=== PATIENT | female | born 1955 | race Caucasian/White ===

== ENCOUNTER → 2018-11-06 19:04 | Outpatient (CLI) | payer BC, SELFPAY ==
[2018-10-29 18:12] VITALS: BMI 29.2
[2018-11-07 01:35] LABS: AST(SGOT) 21 U/L (15-37); Alanine Aminotransfer ALT/SGPT 17 U/L (13-56); Albumin, Serum 3.9 g/dL (3.2-5.0); Alkaline Phosphatase 62 U/L (45-117); Anion Gap 3 (5-15); BUN 10 mg/dL (7-18); BUN/Creat Ratio 12.3 RATIO (10-20); Calcium,Total 8.8 mg/dL (8.5-10.1); Chloride 102 mmol/L (98-107); Cholesterol 191 mg/dL (200); Creatinine, Serum 0.81 mg/dL (0.55-1.02); EST Glomerular Filtration Rate 76 mL/min (>60); Est Glom Filt Rate - Afr Amer 92 mL/min (>60); Glucose 92 mg/dL (74-106); High Density Lipoprotein 64 mg/dL; Potassium 3.8 mmol/L (3.5-5.1); Protein, Total 7.9 g/dL (6.4-8.2); Sodium Level 136 mmol/L (136-145); Thyroid Stim Hormone (TSH) 2.06 uIU/mL (0.358-3.74); Triglycerides 193 mg/dL; Very Low Density Lipoprotein 39 mg/dL (5-40)
== END ==
PROVIDERS: Family Provider Family Medicine; PCP Family Medicine; Referring Provider Nurse Practitioner; Visit Provider Nurse Practitioner
DX: E78.5 Hyperlipidemia, unspecified (principal); E03.9 Hypothyroidism, unspecified
CPT/HCPCS: 80053; 80061; 84443

== ENCOUNTER → 2019-11-14 22:14 | Outpatient (CLI) | payer BC, SELFPAY ==
[2019-11-14 17:55] VITALS: BMI 29.0
[2019-11-14 22:24] LABS: Absolute Lymphocyte Count 2.45 X10^3/uL (0.83-4.51); Absolute Neutrophil Count 7.2 X10^3/uL (2.0-7.7); Basophil# 0.04 X10^3/uL; Basophil% 0.4 % (0-1); Eosinophil# 0.13 X10^3/uL; Eosinophils% 1.2 % (0-5); Hematocrit 45.9 % (37-47); Hemoglobin 14.8 g/dL (12.0-15.0); Lymphocyte # 2.45 X10^3/ul (4.0); Mean Corp Hgb Conc 32.2 g/dL (32-36); Mean Corpuscular Volume 89.8 fL (81-99); Mean Platelet Vol. 11.7 fl (6.2-12.0); Monocyte# 0.79 X10^3/uL; Monocyte% 7.4 % (0-10); NRBC Flagged by Analyzer 0 % (0-5); Neutrophil % 67.8 % (47-70); Platelet Count 178 K/mm3 (150-450); RBC Distribution Width CV 12.5 % (11.6-14.6); RBC Distribution Width SD 41.3 fl (35.1-43.9); Red Blood Count 5.11 M/mm3 (4.2-5.4); White Blood Count 10.6 K/mm3 (4.4-11.0)
[2019-11-14 22:45] LABS: AST(SGOT) 23 U/L (15-37); Alanine Aminotransfer ALT/SGPT 20 U/L (13-56); Albumin, Serum 4.2 g/dL (3.2-5.0); Alkaline Phosphatase 69 U/L (45-117); Anion Gap 7 (5-15); BUN 6 mg/dL (7-18); BUN/Creat Ratio 7.3 RATIO (10-20); Calcium,Total 9.4 mg/dL (8.5-10.1); Chloride 106 mmol/L (98-107); Cholesterol 221 mg/dL (200); Creatinine, Serum 0.82 mg/dL (0.55-1.02); EST Glomerular Filtration Rate 74 mL/min (>60); Est Glom Filt Rate - Afr Amer 90 mL/min (>60); Globulin 4.3 g/dL (2.2-4.2); Glucose 112 mg/dL (74-106); High Density Lipoprotein 66 mg/dL; Potassium 3.7 mmol/L (3.5-5.1); Protein, Total 8.5 g/dL (6.4-8.2); Sodium Level 140 mmol/L (136-145); Thyroid Stim Hormone (TSH) 1.63 uIU/mL (0.358-3.74); Triglycerides 127 mg/dL; Very Low Density Lipoprotein 25 mg/dL (5-40)
== END ==
LOC: OLS.AHF 22:15 → LABSPEC 11-15 08:44
PROVIDERS: PCP Family Medicine; Referring Provider Nurse Practitioner; Visit Provider Nurse Practitioner
DX: Z00.00 Encounter for general adult medical examination without abnormal findings (principal); I10 Essential (primary) hypertension; E03.9 Hypothyroidism, unspecified
CPT/HCPCS: 80053; 80061; 84443; 85025

== ENCOUNTER → 2020-10-30 21:54 | Outpatient (CLI) | payer BC, SELFPAY ==
[2020-10-30 22:27] LABS: Absolute Lymphocyte Count 2.71 X10^3/uL (0.83-4.51); Absolute Neutrophil Count 4.1 X10^3/uL (2.0-7.7); Basophil# 0.04 X10^3/uL; Basophil% 0.5 % (0-1); Eosinophil# 0.31 X10^3/uL; Eosinophils% 3.8 % (0-5); Hematocrit 39.8 % (37-47); Hemoglobin 12.7 g/dL (12.0-15.0); Lymphocyte # 2.71 X10^3/ul (0.83-4.51); Lymphocyte % 33.4 % (19-41); Mean Corp Hgb Conc 31.9 g/dL (32-36); Mean Corpuscular Hgb 27.5 pg (27.0-32.0); Mean Corpuscular Volume 86.3 fL (81-99); Mean Platelet Vol. 11.7 fl (6.2-12.0); Monocyte# 0.95 X10^3/uL; Monocyte% 11.7 % (0-10); NRBC Flagged by Analyzer 0 % (0-5); Neutrophil # 4.08 X10^3/uL (2.7-7.7); Neutrophil % 50.4 % (47-70); Platelet Count 226 K/mm3 (150-450); RBC Distribution Width CV 13.2 % (11.6-14.6); RBC Distribution Width SD 41.3 fl (35.1-43.9); Red Blood Count 4.61 M/mm3 (4.2-5.4); White Blood Count 8.1 K/mm3 (4.4-11.0)
[2020-10-30 22:45] LABS: AST(SGOT) 26 U/L (15-37); Alanine Aminotransfer ALT/SGPT 21 U/L (13-56); Albumin, Serum 4.1 g/dL (3.2-5.0); Alkaline Phosphatase 66 U/L (45-117); Anion Gap 9 (5-15); BUN 12 mg/dL (7-18); BUN/Creat Ratio 14.4 RATIO (10-20); Chloride 98 mmol/L (98-107); Cholesterol 199 mg/dL (200); Creatinine, Serum 0.84 mg/dL (0.55-1.02); EST Glomerular Filtration Rate 73 mL/min (>60); Est Glom Filt Rate - Afr Amer 88 mL/min (>60); Globulin 4.2 g/dL (2.2-4.2); Glucose 90 mg/dL (74-106); High Density Lipoprotein 66 mg/dL; Potassium 2.6 mmol/L (3.5-5.1); Protein, Total 8.3 g/dL (6.4-8.2); Sodium Level 135 mmol/L (136-145); Thyroid Stim Hormone (TSH) 1.93 uIU/mL (0.358-3.74); Triglycerides 107 mg/dL; Very Low Density Lipoprotein 21 mg/dL (5-40)
== END ==
PROVIDERS: PCP Family Medicine; Referring Provider Nurse Practitioner; Visit Provider Nurse Practitioner
DX: Z00.00 Encounter for general adult medical examination without abnormal findings (principal)
CPT/HCPCS: 80053; 80061; 84443; 85025

== ENCOUNTER → 2020-11-19 21:45 | Outpatient (CLI) | payer BC, SELFPAY ==
[2020-11-19 22:26] LABS: Anion Gap 5 (5-15); BUN 19 mg/dL (7-18); BUN/Creat Ratio 25.3 RATIO (10-20); Chloride 99 mmol/L (98-107); Creatinine, Serum 0.75 mg/dL (0.55-1.02); EST Glomerular Filtration Rate 82 mL/min (>60); Est Glom Filt Rate - Afr Amer 100 mL/min (>60); Glucose 111 mg/dL (74-106); Potassium 2.8 mmol/L (3.5-5.1); Sodium Level 135 mmol/L (136-145)
== END ==
PROVIDERS: PCP Family Medicine; Visit Provider Nurse Practitioner
DX: E87.6 Hypokalemia (principal)
CPT/HCPCS: 80048

== ENCOUNTER → 2020-12-07 22:15 | Outpatient (CLI) | payer BC, SELFPAY ==
[2020-12-07 22:47] LABS: ALB/GLOB Ratio 0.8 RATIO (0.9-2.4); AST(SGOT) 21 U/L (15-37); Alanine Aminotransfer ALT/SGPT 22 U/L (13-56); Albumin, Serum 3.8 g/dL (3.2-5.0); Alkaline Phosphatase 68 U/L (45-117); Anion Gap 10 (5-15); BUN 13 mg/dL (7-18); BUN/Creat Ratio 15.2 RATIO (10-20); Calcium,Total 9.2 mg/dL (8.5-10.1); Chloride 102 mmol/L (98-107); Creatinine, Serum 0.86 mg/dL (0.55-1.02); EST Glomerular Filtration Rate 71 mL/min (>60); Est Glom Filt Rate - Afr Amer 86 mL/min (>60); Globulin 4.5 g/dL (2.2-4.2); Glucose 159 mg/dL (74-106); Potassium 3.3 mmol/L (3.5-5.1); Protein, Total 8.3 g/dL (6.4-8.2); Sodium Level 140 mmol/L (136-145)
== END ==
PROVIDERS: PCP Family Medicine; Referring Provider Nurse Practitioner; Visit Provider Nurse Practitioner
DX: E87.6 Hypokalemia (principal)
CPT/HCPCS: 80053

== ENCOUNTER → 2021-02-05 21:08 | Outpatient (CLI) | payer BC, SELFPAY ==
[2021-02-05 21:50] LABS: ALB/GLOB Ratio 0.9 RATIO (0.9-2.4); AST(SGOT) 19 U/L (15-37); Alanine Aminotransfer ALT/SGPT 19 U/L (13-56); Albumin, Serum 3.9 g/dL (3.2-5.0); Alkaline Phosphatase 65 U/L (45-117); Anion Gap 7 (5-15); BUN 18 mg/dL (7-18); BUN/Creat Ratio 22.2 RATIO (10-20); Calcium,Total 9.5 mg/dL (8.5-10.1); Chloride 104 mmol/L (98-107); Creatinine, Serum 0.81 mg/dL (0.55-1.02); EST Glomerular Filtration Rate 75 mL/min (>60); Est Glom Filt Rate - Afr Amer 91 mL/min (>60); Globulin 4.5 g/dL (2.2-4.2); Glucose 107 mg/dL (74-106); Potassium 3.4 mmol/L (3.5-5.1); Protein, Total 8.4 g/dL (6.4-8.2); Sodium Level 139 mmol/L (136-145)
== END ==
PROVIDERS: PCP Family Medicine; Referring Provider Nurse Practitioner; Visit Provider Nurse Practitioner
DX: E87.6 Hypokalemia (principal)
CPT/HCPCS: 80053

== ENCOUNTER → 2021-11-13 | Outpatient (CLI) | payer BC, SELFPAY ==
[2021-11-13 01:43] LABS: Absolute Lymphocyte Count 2.86 X10^3/uL (0.83-4.51); Absolute Neutrophil Count 5.3 X10^3/uL (2.0-7.7); Basophil# 0.05 X10^3/uL; Basophil% 0.5 % (0-1); Eosinophil# 0.18 X10^3/uL; Eosinophils% 1.9 % (0-5); Hematocrit 40.8 % (37-47); Hemoglobin 13.3 g/dL (12.0-15.0); Lymphocyte # 2.86 X10^3/ul (0.83-4.51); Lymphocyte % 30.7 % (19-41); Mean Corp Hgb Conc 32.6 g/dL (32-36); Mean Corpuscular Hgb 28.4 pg (27.0-32.0); Mean Platelet Vol. 11.2 fl (6.2-12.0); Monocyte# 0.86 X10^3/uL; Monocyte% 9.2 % (0-10); NRBC Flagged by Analyzer 0 % (0-5); Neutrophil # 5.34 X10^3/uL (2.7-7.7); Neutrophil % 57.5 % (47-70); POSITIVE COUNT YES; RBC Distribution Width CV 13.2 % (11.6-14.6); RBC Distribution Width SD 42.1 fl (35.1-43.9); Red Blood Count 4.69 M/mm3 (4.2-5.4); White Blood Count 9.3 K/mm3 (4.4-11.0)
[2021-11-13 01:51] LABS: Differential Indicated SCAN CRITERIA MET
[2021-11-13 02:05] LABS: AST(SGOT) 22 U/L (15-37); Alanine Aminotransfer ALT/SGPT 21 U/L (13-56); Albumin, Serum 4.1 g/dL (3.2-5.0); Alkaline Phosphatase 65 U/L (45-117); Anion Gap 8 (5-15); BUN 11 mg/dL (7-18); BUN/Creat Ratio 13.2 RATIO (10-20); Calcium,Total 9.5 mg/dL (8.5-10.1); Chloride 99 mmol/L (98-107); Cholesterol 222 mg/dL (200); Creatinine, Serum 0.84 mg/dL (0.55-1.02); EST Glomerular Filtration Rate 73 mL/min (>60); Est Glom Filt Rate - Afr Amer 88 mL/min (>60); Globulin 4.2 g/dL (2.2-4.2); Glucose 108 mg/dL (74-106); High Density Lipoprotein 65 mg/dL; Potassium 3.3 mmol/L (3.5-5.1); Protein, Total 8.3 g/dL (6.4-8.2); Sodium Level 138 mmol/L (136-145); Thyroid Stim Hormone (TSH) 0.88 uIU/mL (0.358-3.74); Triglycerides 114 mg/dL; Very Low Density Lipoprotein 23 mg/dL (5-40)
[2021-11-13 02:06] LABS: Differential Comment SCANNED
[2021-11-13 02:07] LABS: Platelet Estimate ADEQUATE (ADEQ)
== END | disposition home or self-care (01) ==
PROVIDERS: PCP Family Medicine; Visit Provider Nurse Practitioner
DX: Z00.00 Encounter for general adult medical examination without abnormal findings (principal)
CPT/HCPCS: 80053; 80061; 84443; 85025

== ENCOUNTER → 2022-11-24 | Outpatient (CLI) | payer MEDICARE, SELFPAY ==
[2022-11-24 20:52] LABS: Absolute Neutrophil Count 5.1 X10^3/uL (2.0-7.7); Basophil# 0.04 X10^3/uL; Basophil% 0.4 % (0-1); Eosinophil# 0.27 X10^3/uL; Hemoglobin 12.5 g/dL (12.0-15.0); Mean Corp Hgb Conc 32.1 g/dL (32-36); Mean Corpuscular Volume 87.4 fL (81-99); Mean Platelet Vol. 11.7 fl (6.2-12.0); Monocyte# 0.77 X10^3/uL; Monocyte% 8.5 % (0-10); NRBC Flagged by Analyzer 0 % (0-5); Neutrophil # 5.12 X10^3/uL (2.7-7.7); Neutrophil % 56.8 % (47-70); Platelet Count 182 K/mm3 (150-450); RBC Distribution Width CV 13.5 % (11.6-14.6); Red Blood Count 4.46 M/mm3 (4.2-5.4)
[2022-11-24 21:13] LABS: ALB/GLOB Ratio 0.9 RATIO (0.9-2.4); AST(SGOT) 23 U/L (15-37); Alanine Aminotransfer ALT/SGPT 26 U/L (13-56); Alkaline Phosphatase 70 U/L (45-117); Anion Gap 9 (5-15); BUN 15 mg/dL (7-18); BUN/Creat Ratio 17.7 RATIO (10-20); Calcium,Total 8.9 mg/dL (8.5-10.1); Chloride 96 mmol/L (98-107); Cholesterol 196 mg/dL (200); Creatinine, Serum 0.85 mg/dL (0.55-1.02); EST Glomerular Filtration Rate 71 mL/min (>60); Est Glom Filt Rate - Afr Amer 86 mL/min (>60); Globulin 4.3 g/dL (2.2-4.2); Glucose 139 mg/dL (74-106); High Density Lipoprotein 56 mg/dL; Potassium 2.8 mmol/L (3.5-5.1); Protein, Total 8.3 g/dL (6.4-8.2); Sodium Level 133 mmol/L (136-145); Thyroid Stim Hormone (TSH) 2.08 uIU/mL (0.358-3.74); Triglycerides 119 mg/dL; Very Low Density Lipoprotein 24 mg/dL (5-40)
== END | disposition home or self-care (01) ==
PROVIDERS: PCP Family Medicine; Visit Provider Nurse Practitioner
DX: I10 Essential (primary) hypertension (principal); E87.6 Hypokalemia; M19.90 Unspecified osteoarthritis, unspecified site; E03.9 Hypothyroidism, unspecified; E78.2 Mixed hyperlipidemia
CPT/HCPCS: 80053; 80061; 84443; 85025

== ENCOUNTER → 2023-11-24 | Outpatient (CLI) | payer MEDICARE, OTHER, SELFPAY ==
[2023-11-24 20:38] LABS: Absolute Lymphocyte Count 3.02 X10^3/uL (0.83-4.51); Absolute Neutrophil Count 4.4 X10^3/uL (2.0-7.7); Basophil# 0.05 X10^3/uL; Basophil% 0.6 % (0-1); Eosinophil# 0.31 X10^3/uL; Eosinophils% 3.6 % (0-5); Hematocrit 38.7 % (37-47); Hemoglobin 12.9 g/dL (12.0-15.0); Lymphocyte # 3.02 X10^3/ul (0.83-4.51); Lymphocyte % 35.5 % (19-41); Mean Corp Hgb Conc 33.3 g/dL (32-36); Mean Corpuscular Hgb 28.4 pg (27.0-32.0); Mean Corpuscular Volume 85.1 fL (81-99); Mean Platelet Vol. 12.3 fl (6.2-12.0); Monocyte# 0.72 X10^3/uL; Monocyte% 8.5 % (0-10); NRBC Flagged by Analyzer 0 % (0-5); Neutrophil # 4.39 X10^3/uL (2.7-7.7); Neutrophil % 51.6 % (47-70); Platelet Count 155 K/mm3 (150-450); RBC Distribution Width CV 12.6 % (11.6-14.6); RBC Distribution Width SD 38.4 fl (35.1-43.9); Red Blood Count 4.55 M/mm3 (4.2-5.4); White Blood Count 8.5 K/mm3 (4.4-11.0)
[2023-11-24 21:18] LABS: AST(SGOT) 18 U/L (15-37); Alanine Aminotransfer ALT/SGPT 18 U/L (13-56); Albumin, Serum 3.9 g/dL (3.2-5.0); Alkaline Phosphatase 65 U/L (45-117); Anion Gap 9 (5-15); BUN 8 mg/dL (7-18); BUN/Creat Ratio 9.8 RATIO (10-20); Calcium,Total 8.9 mg/dL (8.5-10.1); Chloride 91 mmol/L (98-107); Cholesterol 190 mg/dL (200); Creatinine, Serum 0.82 mg/dL (0.55-1.02); EST Glomerular Filtration Rate 74 mL/min (>60); Est Glom Filt Rate - Afr Amer 90 mL/min (>60); Globulin 3.9 g/dL (2.2-4.2); Glucose 229 mg/dL (74-106); High Density Lipoprotein 57 mg/dL; Potassium 2.9 mmol/L (3.5-5.1); Protein, Total 7.8 g/dL (6.4-8.2); Sodium Level 130 mmol/L (136-145); Triglycerides 196 mg/dL; Very Low Density Lipoprotein 39 mg/dL (5-40)
== END | disposition home or self-care (01) ==
PROVIDERS: Nurse Practitioner; PCP Family Medicine; Referring Provider Family Medicine; Visit Provider Family Medicine
DX: E87.6 Hypokalemia (principal); I10 Essential (primary) hypertension; M15.3 Secondary multiple arthritis; E03.9 Hypothyroidism, unspecified; E78.2 Mixed hyperlipidemia
CPT/HCPCS: 80053; 80061; 84443; 85025

== ENCOUNTER → 2024-11-22 | Outpatient (CLI) | payer MEDICARE, OTHER, SELFPAY ==
--- OUTSIDE RECORDS SUMMARY | 2024-11-22 22:46 | XMS RPT_ITS | CCD ---
Author Organization [facility] Care Team Providers Care Ticket Writer Name Role Phone Abhinav Lennon Primary Care Provider ABHINAV LENNON Referring Unavailable ABHINAV LENNON Attending Unavailable Almas Martin Referring Unavailable Almas Martin Attending Unavailable Almas Martin Primary Care Unavailable Abhinav Lennon Primary Care Provider Medications Current Medications Medication Drug Class(es) Dates Sig (Normalized) Sig (Original) levothyroxine sodium 0.088 mg oral capsule (14 sources) l-Thyroxine Start: 10-29-2018 End: 11-25-2022 take 1 capsule by mouth once daily levothyroxine 88 mcg capsule Active 88 MCG PO DAILY November 25, 2022 1:23pm Start: 09-27-2017 take 1 tablet by buddy th once daily levothyroxine (SYNTHROID) 88 MCG tablet Take 88 mcg by mouth daily 0 09/27/2017 Active traMADol hydrochloride 50 mg oral tablet (20 sources) Opioid Agonist Start: 03-09-2018 End: 11-24-2022 take 100 mg by mouth twice daily Tramadol Active 100 MG PO TWICE A DAY 360 November 24, 2022 5:51pm Start: 09-27-2017 take 1 tablet by buddy th four times daily as needed traMADol (ULTRAM) 50 MG tablet Take 50 mg by mouth 4 times daily as needed. 0 09/27/2017 Active 24 hr verapamil hydrochloride 240 mg extended release oral capsule (17 sources) Calcium Channel Otf Start: 11-14-2019 End: 11-24-2022 take 240 mg by mouth once daily Verapamil Active 240 MG PO DAILY November 24, 2022 5:51pm Start: 09-27-2017 End: 10-04-2019 take 240 mg by mouth once daily in the morning Verapamil Discontinued 240 MG PO EVERY MORNING November 06, 2018 12:09pm October 04, 2019 3:11pm On Hold: back oredered Completed/Discontinued Medications Medication Drug Class(es) Dates Sig (Normalized) Sig (Original) amLODIPine 10 mg oral tablet (2 sources) Dihydropyridine Calcium Channel Otf Start: 01-15-20 End: 11-14-19 take 10 mg by mouth once daily Amlodipine Discontinued 10 MG PO DAILY January 14, 2019 1:00am November 14, 2019 6:06pm amoxicillin 875 mg / clavulanate 125 mg oral tablet (2 sources) Penicillin-class Antibacterial Start: 01-02-20 End: 04-01-19 take 1 tablet by mouth twice daily Amoxicillin-Pot Clavulanate Discontinued 1 TABLET PO TWICE A DAY January 01, 2019 12:00am April 01, 2019 6:24pm cefuroxime 500 mg oral tablet (2 sources) Cephalosporin Antibacterial Start: 01-13-20 End: 04-01-19 take 500 mg by mouth twice daily Cefuroxime Axetil Discontinued 500 MG PO TWICE A DAY January 12, 2019 1:00am April 01, 2019 6:24pm ciprofloxacin 500 mg oral tablet (2 sources) Quinolone Antimicrobial Start: 03-09-19 End: 10-30-19 take 500 mg by mouth twice daily Ciprofloxacin Hcl Discontinued 500 MG PO TWICE A DAY March 09, 2018 1:00am October 29, 2018 6:14pm cyclobenzaprine hydrochloride 10 mg oral tablet (15 sources) Muscle Relaxant Start: 09-28-19 18 End: 11-25-19 take 10 mg by mouth three times daily Cyclobenzaprine Discontinued 10 MG PO THREE TIMES A DAY November 06, 2018 12:07pm November 14, 2019 6:11pm dicyclomine hydrochloride 20 mg oral tablet (13 sources) Anticholinergic Start: 10-30-19 End: 11-25-19 take 20 mg by mouth three times daily Dicyclomine Discontinued 20 MG PO THREE TIMES A DAY November 06, 2018 12:08pm November 14, 2019 6:11pm estradiol 0.5 mg oral tablet (8 sources) Estrogen Start: 10-30-19 End: 04-15-19 take 0.5 mg by mouth once daily Estradiol Discontinued 0.5 MG PO DAILY November 06, 2018 12:08pm November 14, 2019 6:11pm gabapentin 300 mg oral capsule (15 sources) Anti-epileptic Agent Start: 09-28-19 End: 11-25-19 take 300 mg by mouth three times daily Gabapentin Discontinued 300 MG PO THREE TIMES A DAY 270 November 06, 2018 12:08pm November 14, 2019 6:11pm hydroCHLOROthiazide 25 mg oral tablet (15 sources) Thiazide Diuretic Start: 09-28-19 End: 11-25-19 take 25 mg by mouth once daily Hydrochlorothiazide Discontinued 25 MG PO DAILY 90 November 06, 2018 12:08pm November 14, 2019 6:11pm ibuprofen 800 mg oral tablet (13 sources) Nonsteroidal Anti-inflammatory Drug Start: 04-01-19 End: 11-25-19 take 800 mg by mouth three times daily Ibuprofen Discontinued 800 MG PO THREE TIMES A DAY 180 February 16, 2021 9:40pm November 12, 2021 3:14pm omeprazole 20 mg delayed release oral capsule (13 sources) Proton Pump Inhibitor Start: 10-30-19 End: 11-25-19 take 20 mg by mouth once daily Omeprazole Discontinued 20 MG PO DAILY November 06, 2018 12:09pm November 14, 2019 6:11pm potassium chloride 20 meq extended release oral tablet (20 sources) Start: 12-09-19 End: 11-25-19 take 20 mEq by mouth twice daily Potassium Chloride Discontinued 20 MEQ PO TWICE A DAY 180 February 12, 2021 3:57pm November 12, 2021 3:14pm Start: 10-30-2020 End: 12-08-2020 take 30 mEq by mouth once daily Potassium Chloride Discontinued 30 MEQ PO DAILY 180 October 30, 2020 3:07pm December 08, 2020 2:54pm Start: 10-29-2018 End: 10-30-2020 take 30 mEq by mouth once daily Potassium Chloride Discontinued 30 MEQ PO DAILY 180 May 16, 2019 7:57pm April 15, 2020 6:40pm Start: 10-29-2018 End: 10-29-2018 Potassium Chloride (Klor-Con M15) 15 mEq tablet,ER particles/crystals Discontinued 15 MEQ PO DAILY October 29, 2018 12:00am October 29, 2018 9:10pm Start: 09-27-2017 potassium chlo ride (KLOR-CON M) 15 MEQ extended release tablet Take 15 mEq by mouth 3 times daily 0 09/27/2017 Active sertraline 50 mg oral tablet (13 sources) Serotonin Reuptake Inhibitor Start: 10-29-2018 End: 11-24-2022 take 50 mg by mouth once daily Sertraline Discontinued 50 MG PO DAILY November 06, 2018 12:09pm November 14, 2019 6:11pm simvastatin 40 mg oral tablet (15 sources) HMG-CoA Reductase Inhibitor Start: 09-27-2017 End: 11-24-2022 take 40 mg by mouth at bedtime Simvastatin Discontinued 40 MG PO AT BEDTIME November 06, 2018 12:09pm November 14, 2019 6:11pm Problems Problem Classification Problem Date Documented Date Episodic/Chronic Disorders of lipid metabolism (2 sources) Hyperlipidemia; Translations: [Hyperlipidemia, unspecified] 11-07-2018 Chronic E Codes: Fall (1 source) Fall on same level from slipping, tripping or stumbling ; Translations: [Fall on same level from slipping, tripping and stumbling without subsequent striking against object, initial encounter] Episodic Essential hypertension (2 sources) Hypertensive disorder; Translations: [Essential (primary) hypertension] 11-24-2022 Chronic Fluid and electrolyte disorders (3 sources) Hypokalemia; Translations: [Hypokalemia] Onset: 12-18-2023 04-16-2020 Episodic Osteoarthritis (2 sources) Osteoarthritis; Translations: [Unspecified osteoarthritis, unspecified site] 04-01-2019 Chronic Other injuries and conditions due to external causes (1 source) Closed injury of head; Translations: [Unspecified injury of head, initial encounter] Episodic Other non-traumatic joint disorders (1 source) Pain in right knee; Translations: [Other acute pain] Episodic Other non-traumatic joint disorders (1 source) Shoulder pain; Translations: [Pain in left shoulder] Episodic Other screening for suspected conditions (not mental disorders or infectious disease) (6 sources) Patient encounter status; Translations: [Encounter for screening mammogram for malignant neoplasm of breast] Onset: 03-18-2022 Episodic Other upper respiratory infections (2 sources) Maxillary sinusitis; Translations: [Chronic maxillary sinusitis] 01-01-2019 Chronic Other upper respiratory infections (2 sources) Pharyngitis; Translations: [Acute pharyngitis, unspecified] 01-01-2019 Episodic Otitis media and related conditions (2 sources) Acute bilateral otitis media ; Translations: [Otitis media, unspecified, bilateral] 01-01-2019 Episodic Spondylosis; intervertebral disc disorders; other back problems (2 sources) Degeneration of lumbosacral intervertebral disc; Translations: [Other intervertebral disc degeneration, lumbosacral region] 04-01-2019 Chronic Spondylosis; intervertebral disc disorders; other back problems (3 sources) Neck pain; Translations: [Cervicalgia] Episodic Thyroid disorders (2 sources) Hypothyroidism; Translations: [Hypothyroidism, unspecified] 11-07-2018 Chronic Results Test Name Value Interpretation Reference Range Facility CBC W/Diff, Automatedon 11-05 Absolute Lymph 3.02 X10 3/uL Normal 0.83-4.51 [facility] Comment on above: Performed By: #### L 500.4100, L100.0100, L501.9520, [id number] #### [facility] Laboratory [address] [facility] [address] Absolute Neut 4.4 X10 3/uL Normal 2.0-7.7 [facility] Comment on above: Performed By: #### L 500.4100, L100.0100, [id number], [id number] #### [facility] Laboratory [address] [facility] [address] Basophils/100 WBC (Bld) 0.6 % Normal 0-1 [facility] Comment on above: Performed By: #### L 500.4100, L100.0100, [id number], [id number] #### [facility] Laboratory [address] [place], [address] Eosinophils/100 WBC (Bld) 3.6 % Normal 0-5 [facility] Comment on above: Performed By: #### L 500.4100, L100.0100, [id number], [id number] #### [facility] [address] [place], [address] Erythrocyte distribution width (RBC) [Ratio] 12.6 % Normal 11.6-14.6 [facility] Comment on above: Performed By: #### L 500.4100, L100.0100, [id number], [id number] #### [facility] [address] [place], [address] Hematocrit (Bld) [Volume fraction] 38.7 % Normal 37-47 [facility] Comment on above: Performed By: #### L 500.4100, L100.0100, [id number], [id number] #### [facility] [address] [place], [address] Hemoglobin (Bld) [Mass/Vol] 12.9 g/dL Normal 12.0-15.0 [facility] Comment on above: Performed By: #### L 500.4100, L100.0100, [id number], [id number] #### [facility] [address] [place], [address] IG% 0.200 Normal 0.0-0.9 [facility] Comment on above: Result Comment: IG% - Immature Granulocytes (promyelocytes, myelocytes and metamyelocytes) > 1% indicates that a LEFT SHIFT is Present. Performed By: #### L 500.4100, L100.0100, L501.9520, [id number] #### [facility] [address] [place], [address] Lymphocytes/100 WBC (Bld) 35.5 % Normal 19-41 [facility] Comment on above: Performed By: #### L 500.4100, L100.0100, [id number], [id number] #### [facility] [address] [place], [address] MCH (RBC) [Entitic mass] 28.4 pg Normal 27.0-32.0 [facility] Comment on above: Performed By: #### L 500.4100, L100.0100, [id number], [id number] #### [facility] [address] [place], [address] MCHC (RBC) [Mass/Vol] 33.3 g/dL Normal 32-36 [facility] Comment on above: Performed By: #### L 500.4100, L100.0100, [id number], [id number] #### [facility] [address] [place], [address] MCV (RBC) [Entitic vol] 85.1 fL Normal 81-99 [facility] Comment on above: Performed By: #### L 500.4100, L100.0100, [id number], [id number] #### [facility] [address] [place], [address] Monocytes/100 WBC (Bld) 8.5 % Normal 0-10 [facility] Comment on above: Performed By: #### L 500.4100, L100.0100, [id number], [id number] #### [facility] [address] [place], [address] Neutrophils/100 WBC (Bld) 51.6 % Normal 47-70 [facility] Comment on above: Performed By: #### L 500.4100, L100.0100, [id number], [id number] #### [facility] [address] [place], [address] Nucleated RBC (Bld) [#/Vol] 0 10*3/uL Normal 0-5 [facility] Comment on above: Performed By: #### L 500.4100, L100.0100, [id number], [id number] #### [facility] [address] [place], [address] Platelet mean volume (Bld) [Entitic vol] 12.3 fL High 6.2-12.0 [facility] Comment on above: Performed By: #### L 500.4100, L100.0100, [id number], [id number] #### [facility] Laboratory [address] [place], [address] Platelets (Bld) [#/Vol] 155 10*3/uL Normal 150-450 [facility] Comment on above: Performed By: #### L 500.4100, L100.0100, [id number], [id number] #### [facility] [address] [place], [address] RBC (Bld) [#/Vol] 4.55 10*6/uL Normal 4.2-5.4 [facility] Comment on above: Performed By: #### L 500.4100, L100.0100, [id number], [id number] #### [facility] [address] [place], [address] RDW SD 38.4 fl Normal 35.1-43.9 [facility] Comment on above: Performed By: #### L 500.4100, L100.0100, [id number], [id number] #### [facility] [address] [place], [address] WBC (Bld) [#/Vol] 8.5 10*3/uL Normal 4.4-11.0 [facility] Comment on above: Performed By: #### L 500.4100, L100.0100, [id number], [id number] #### [facility] Laboratory [address] [place], [address] Comprehensive Metabolic Prof [facility] 11-24-2023 Albumin [Mass/Vol] 3.9 g/dL Normal 3.2-5.0 [facility] Comment on above: Performed By: #### L 500.4100, L100.0100, [id number], [id number] #### [facility] [address] [place], [address] Albumin/Globulin [Mass ratio] 1.0 {ratio} Normal 0.9-2.4 [facility] Comment on above: Performed By: #### L 500.4100, L100.0100, [id number], [id number] #### [facility] [address] [place], [address] ALK P 65 U/L Normal 45-117 [facility] Comment on above: Performed By: #### L 500.4100, L100.0100, [id number], [id number] #### [facility] [address] [place], [address] ALT [Catalytic activity/Vol] 18 U/L Normal 13-56 [facility] Comment on above: Performed By: #### L 500.4100, L100.0100, [id number], [id number] #### [facility] [address] [place], [address] AST [Catalytic activity/Vol] 18 U/L Normal 15-37 [facility] Comment on above: Performed By: #### L 500.4100, L100.0100, [id number], [id number] #### [facility] [address] [place], [address] Bilirubin [Mass/Vol] 0.40 mg/dL Normal 0.20-1.00 [facility] Comment on above: Result Comment: For patients on eltrombopag therapy, use of Dimension [place] TBIL is not recommended. Performed By: #### L 500.4100, L100.0100, [id number], [id number] #### [facility] [address] [place], [address] BUN/CRE 9.8 RATIO Low 10-20 [facility] Comment on above: Performed By: #### L 500.4100, L100.0100, [id number], [id number] #### [facility] [address] [place], [address] CA,Total 8.9 mg/dL Normal 8.5-10.1 [facility] Comment on above: Performed By: #### L 500.4100, L100.0100, [id number], [id number] #### [facility] [address] [place], [address] Chloride [Moles/Vol] 91 mmol/L Low 98-107 [facility] Comment on above: Performed By: #### L 500.4100, L100.0100, [id number], [id number] #### [facility] [address] [place], [address] CO2 [Moles/Vol] 30.0 mmol/L Normal 21.0-32.0 [facility] Comment on above: Performed By: #### L 500.4100, L100.0100, [id number], [id number] #### [facility] [address] [place], [address] Creatinine [Mass/Vol] 0.82 mg/dL Normal 0.55-1.02 [facility] Comment on above: Result Comment: The validity of the calculated GFR GFRAA in patients over 70 years has not been determined. Clinical correlation is essential. Performed By: #### L 500.4100, L100.0100, L501.9520, L500.4050 #### [facility] [address] [place], [address] EST GFR - AA 90 mL/min Normal >60 [facility] Comment on above: Result Comment: Afri can Faroese GFR Calc Performed By: #### L 500.4100, L100.0100, [id number], [id number] #### [facility] [address] [place], [address] GAP 9 Normal 5-15 [facility] Comment on above: Performed By: #### L 500.4100, L100.0100, [id number], [id number] #### [facility] [address] [place], [address] GFR/1.73 sq M.predicted among non-blacks MDRD (S/P/Bld) [Vol rate/Area] 74 mL/min/{1.73_m2} Normal >60 [facility] Comment on above: Result Comment: Non- GFR Calc Performed By: #### L 500.4100, L100.0100, [id number], [id number] #### [facility] [address] [place], [address] Globulin (S) [Mass/Vol] 3.9 g/dL Normal 2.2-4.2 [facility] Comment on above: Performed By: #### L 500.4100, L100.0100, [id number], [id number] #### [facility] [address] [place], [address] Glucose [Mass/Vol] 229 mg/dL High 74-106 [facility] Comment on above: Result Comment: Gluc ose result greater than or equal to 200 mg/dL suggests DIABETES MELLITUS per A.D.A. criteria. Performed By: #### L 500.4100, L100.0100, [id number], [id number] #### [facility] [address] [place], [address] Potassium [Moles/Vol] 2.9 mmol/L Low 3.5-5.1 [facility] Comment on above: Performed By: #### L 500.4100, L100.0100, [id number], [id number] #### [facility] [address] [place], [address] Sodium [Moles/Vol] 130 mmol/L Low 136-145 [facility] Comment on above: Performed By: #### L 500.4100, L100.0100, [id number], [id number] #### [facility] [address] [place], [address] T PROT 7.8 g/dL Normal 6.4-8.2 [facility] Comment on above: Performed By: #### L 500.4100, L100.0100, [id number], [id number] #### [facility] [address] [place], [address] Urea nitrogen [Mass/Vol] 8 mg/dL Normal 7-18 [facility] Comment on above: Performed By: #### L 500.4100, L100.0100, [id number], [id number] #### [facility] [address] [place], [address] Lipid Profileon 11-24-2023 Cholesterol [Mass/Vol] 190 mg/dL Normal 200 [facility] Comment on above: Result Comment: <200 mg/dL Desirable 200-240 mg/dL Borderline >240 mg/dL High Risk Performed By: #### L 500.4100, L100.0100, [id number], L500.4050 #### [facility] [address] [place], [address] Cholesterol in HDL [Mass/Vol] 57 mg/dL Normal [facility] Comment on above: Result Comment: The drugs N-Acetylcysteine and Metamizole may falsely depress this assay. Reference Range HDL <40 mg/dL Low HDL Cholesterol HDL >or= 60 mg/dL High HDL Cholesterol Performed By: #### L 500.4100, L100.0100, [id number], L500.4050 #### [facility] [address] [place], [address] Cholesterol in LDL [Mass/Vol] 94 mg/dL Normal 0-130 [facility] Comment on above: Performed By: #### L 500.4100, L100.0100, [id number], [id number] #### [facility] Laboratory [address] [place], [address] Cholesterol in VLDL [Mass/Vol] 39 mg/dL Normal 5-40 [facility] Comment on above: Performed By: #### L 500.4100, L100.0100, [id number], [id number] #### [facility] Laboratory [address] [place], [address] Triglyceride [Mass/Vol] 196 mg/dL Normal [facility] Comment on above: Result Comment: The drugs N-Acetylcysteine and Metamizole may falsely depress this assay. Serum Triglycerides Reference Interval Normal <150 mg/dL Borderline high 150 - 199 mg/dL High 200 - 499 mg/dL Very High > or = 500 mg/dL Performed By: #### L 500.4100, L100.0100, L501.9520, L500.4050 #### [facility] [address] [place], [address] Thyroid Stim Hormone (TSH)on 11-24-2023 TSH 1.370 uIU/mL Normal 0.358-3.740 [facility] Comment on above: Performed By: #### L 500.4100, L100.0100, L501.9520, [id number] #### [facility] [address] [place], [address] Absolute lymphocyte countOrd ered By: Abhinav Lennon on 11-24-2022 Lymphocytes Auto (Unsp spec) [#/Vol] 2.80 10*3/uL 0.83-4.51 [facility] Basophil percentageOrdered B y: Abhinav Lennon on 11-24-2022 Basophils/100 WBC (Bld) 0.4 % 0-1 [facility] Bilirubin [Mass/Vol] 0.50 mg/dL 0.20-1.00 [facility] Comment on above: For patients on eltr ombopag therapy, use of Dimension [place] TBIL is not recommended. Chloride [Moles/Vol] 96 mmol/L 98-107 [facility] Cholesterol [Mass/Vol] 196 mg/dL <200 [facility] Comment on above: <200 mg/dL Desirable 200-240 mg/dL Borderline >240 mg/dL High Risk Eosinophils/100 WBC (Bld) 3.0 % 0-5 [facility] Glucose [Mass/Vol] 139 mg/dL 74-106 [facility] Comment on above: Fasting Glucose resu lt greater than or equal to 126 mg/dL suggests DIABETES MELLITUS per A.D.A. criteria. Neutrophils (Bld) [#/Vol] 5.1 10*3/uL 2.0-7.7 [facility] Neutrophils/100 WBC (Bld) 56.8 % 47-70 [facility] Potassium [Moles/Vol] 2.8 mmol/L 3.5-5.1 [facility] Protein [Mass/Vol] 8.3 g/dL 6.4-8.2 [facility] Sodium [Moles/Vol] 133 mmol/L 136-145 [facility] Triglyceride [Mass/Vol] 119 mg/dL <199 [facility] Comment on above: The drugs N-Acetylcy steine and Metamizole may falsely depress this assay.Serum Triglycerides Reference Interval Normal <150 mg/dL Borderline high 150 - 199 mg/dL High 200 - 499 mg/dL Very High > or = 500 mg/dL WBC (Bld) [#/Vol] 9.0 10*3/uL 4.4-11.0 [facility] Blood erythrocytes count (nu mber/volume)Ordered By: Abhinav Lennon on 11-24-2022 RBC (Bld) [#/Vol] 4.46 10*6/uL 4.2-5.4 [facility] Blood hemoglobin measurement (mass/volume)Ordered By: Abhinav Lennon on 11-24-2022 Hemoglobin (Bld) [Mass/Vol] 12.5 g/dL 12.0-15.0 [facility] [place] Blood lymphocytes/100 leukoc ytesOrdered By: Abhinav Lennon on 11-24-2022 Lymphocytes/100 WBC (Bld) 31.0 % 19-41 [facility] [place] Blood monocytes/100 leukocyt esOrdered By: Abhinav Lennon on 11-24-2022 Monocytes/100 WBC (Bld) 8.5 % 0-10 [facility] Blood platelet mean volumeOr dered By: Abhinav Lennon on 11-24-2022 Platelet mean volume (Bld) [Entitic vol] 11.7 fL 6.2-12.0 [facility] Determination of erythrocyte mean corpuscular volume (MCV)Ordered By: Abhinav Lennon on 11-24-2022 MCV (RBC) [Entitic vol] 87.4 fL 81-99 [facility] Hematocrit Auto (Bld) [Volum e fraction]Ordered By: Abhinav Lennon on 11-24-2022 Hematocrit (Bld) [Volume fraction] 39.0 % 37-47 [facility] [place] Laboratory - Chemistry and C hemistry - challengeOrdered By: Abhinav Lennon on 11-24-2022 ALP [Catalytic activity/Vol] 70 U/L 45-117 [facility] ALT [Catalytic activity/Vol] 26 U/L 13-56 [facility] CO2 [Moles/Vol] 28.0 mmol/L 21.0-32.0 [facility] Globulin (S) [Mass/Vol] 4.3 g/dL 2.2-4.2 [facility] Urea nitrogen/Creatinine [Mass ratio] 17.7 mg/mg 10-20 [facility] [place] Laboratory - Hematology and Cell countsOrdered By: Abhinav Lennon on 11-24-2022 Erythrocyte distribution width (RBC) [Entitic vol] 43.0 fL 35.1-43.9 [facility] [place] Erythrocyte distribution width (RBC) [Ratio] 13.5 % 11.6-14.6 [facility] [place] Immature granulocytes/100 WBC (Bld) 0.300 % 0.0-0.9 [facility] Comment on above: IG% - Immature Granu locytes (promyelocytes, myelocytes and metamyelocytes) > 1% indicates that a LEFT SHIFT is Present. MCH (RBC) [Entitic mass] 28.0 pg 27.0-32.0 [facility] Nucleated RBC/100 WBC (Bld) [Ratio] 0 % 0-5 [facility] MCHC Auto (RBC) [Mass/Vol]Or dered By: Abhinav Lennon on 11-24-2022 MCHC (RBC) [Mass/Vol] 32.1 g/dL 32-36 [facility] No Panel InformationOrdered By: Abhinav Lennon on 11-24-2022 Estimated GFR (MDRD) Amer 86 mL/min >60 [facility] [place] Comment on above: GFR Calc Estimated GFR (MDRD) Non-Af Amer 71 mL/min >60 [facility] [place] Comment on above: Non- GFR Calc Thyroid Stimulating Hormone (TSH) 2.08 uIU/mL 0.358-3.74 [facility] [place] Platelets bldOrdered By: Gary Lennon on 11-24-2022 Platelets (Bld) [#/Vol] 182 10*3/uL 150-450 [facility] [place] Serum or plasma albumin stephane urement (mass/volume)Ordered By: Abhinav Lennon on 11-24-2022 Albumin [Mass/Vol] 4.0 g/dL 3.2-5.0 [facility] Serum or plasma albumin/glob ulin mass ratioOrdered By: Abhinav Lennon on 11-24-2022 Albumin/Globulin [Mass ratio] 0.9 {ratio} 0.9-2.4 [facility] [place] Serum or plasma calcium stephane urement (mass/volume)Ordered By: Abhinav Lennon on 11-24-2022 Calcium [Mass/Vol] 8.9 mg/dL 8.5-10.1 [facility] Serum or plasma cholesterol in HDL measurement (mass/volume)Ordered By: Abhinav Lennon on 11-24-2022 Cholesterol in HDL [Mass/Vol] 56 mg/dL >40 [facility] [place] Comment on above: The drugs N-Acetylcy steine and Metamizole may falsely depress this assay. Reference Range HDL <40 mg/dL Low HDL Cholesterol HDL >or= 60 mg/dL High HDL Cholesterol Serum or plasma cholesterol in VLDL measurement (mass/volume)Ordered By: Abhinav Lennon on 11-24-2022 Cholesterol in VLDL [Mass/Vol] 24 mg/dL 5-40 [facility] [place] Serum or plasma creatinine m easurement (mass/volume)Ordered By: Abhinav Lennon on 11-24-2022 Creatinine [Mass/Vol] 0.85 mg/dL 0.55-1.02 [facility] Comment on above: The validity of the calculated GFR & GFRAA in patients over 70 years has not been determined. Clinical correlation is essential. Serum or plasma low density lipoprotein (LDL) cholesterol measurement (mass/volume)Ordered By: Abhinav Lennon on 11-24-2022 Cholesterol in LDL [Mass/Vol] 116 mg/dL 0-130 [facility] [place] Serum or plasma urea nitroge n measurement (mass/volume)Ordered By: Abhinav Lennon on 11-24-2022 Urea nitrogen [Mass/Vol] 15 mg/dL 7-18 [facility] [place] Thin prep Papanicolaou smear with manual screeningOrdered By: Abhinav Lennon on 11-24-2022 Thin prep Papanicolaou smear with manual screening 23 U/L 15-37 [facility] [place] Thin prep Papanicolaou smear with manual screening 9 5-15 [facility] [place] DBT Breast - bilateral servandoe nerissa 03-18-2022 No mammographic evidence of malignancy. ASSESSMENT: Category 1 Negative RECOMMENDATION: Routine screening mammogram in 1 year. Bilateral Report Dictated on Electronically Signed By: Sue Cramer Electronically Signed Date/Time: 03/18/2022 8:20 AM [id number] Exam Date/Time: 03/18/2022 07:54 Procedure: BI MAMMOGRAM SCREENING TOMOSYNTHESIS BILATERAL Ordering Provider: LENNON DORA Reason For Exam: Image views: 2D Bilateral CC and MLO views were acquired. 3D Bilateral CC and MLO views were acquired. Images were reviewed with CAD. Markings on images: BB's = Nipples; skin lesions Open kaw = Palpable Line = Scar COMPARISON: 02/05/2016, 04/26/2019 TISSUE DENSITY: BIRADS B - There are scattered fibroglandular densities. FINDINGS: No suspicious masses, architectural distortions or suspiciously clustered microcalcifications are identified. There is no evidence of skin thickening or nipple retraction. There are no significant changes when compared with prior studies. [facility] Sue Cramer MD - 03/18/2022 Patient Name: RENE MEADOWS Exam Date/Time: 03/18/2022 07:54 Procedure: BI MAMMOGRAM SCREENING TOMOSYNTHESIS BILATERAL Ordering Provider: LENNON DORA Reason For Exam: Image views: 2D Bilateral CC and MLO views were acquired. 3D Bilateral CC and MLO views were acquired. Images were reviewed with CAD. Markings on images: BB's = Nipples; skin lesions Open kaw = Palpable Line = Scar COMPARISON: 02/05/2016, 04/26/2019 TISSUE DENSITY: BIRADS B - There are scattered fibroglandular densities. FINDINGS: No suspicious masses, architectural distortions or suspiciously clustered microcalcifications are identified. There is no evidence of skin thickening or nipple retraction. There are no significant changes when compared with prior studies. IMPRESSION: No mammographic evidence of malignancy. ASSESSMENT: Category 1 Negative RECOMMENDATION: Routine screening mammogram in 1 year. Bilateral Report Dictated on Electronically Signed By: Sue Cramer Electronically Signed Date/Time: 03/18/2022 8:20 AM EST [facility] Radiology Study observation (narrative) [facility] DBT Breast - bilateral scree ningOrdered By: Sue Cramer on 03-18-2022 [facility] Work Phone: Absolute lymphocyte counton 11-12-2021 Lymphocytes Auto (Unsp spec) [#/Vol] 2.86 10*3/uL 0.83-4.51 [facility] Work Phone: Basophil percentageon 2021 Basophils/100 WBC (Bld) 0.5 % 0-1 [facility] Work Phone: Bilirubin [Mass/Vol] 0.50 mg/dL 0.20-1.00 [facility] Work Phone: Comment on above: For patients on eltr ombopag therapy, use of Dimension [place] TBIL is not recommended. Chloride [Moles/Vol] 99 mmol/L 98-107 [facility] Work Phone: Cholesterol [Mass/Vol] 222 mg/dL <200 [facility] Work Phone: Comment on above: <200 mg/dL Desirable 200-240 mg/dL Borderline >240 mg/dL High Risk Eosinophils/100 WBC (Bld) 1.9 % 0-5 [facility] Work Phone: Glucose [Mass/Vol] 108 mg/dL 74-106 [facility] Work Phone: Comment on above: Fasting Glucose resu lt from 100 to 125 mg/dL suggests IMPAIRED HOMEOSTASIS per A.D.A. criteria. Neutrophils (Bld) [#/Vol] 5.3 10*3/uL 2.0-7.7 [facility] [place] Work Phone: Neutrophils/100 WBC (Bld) 57.5 % 47-70 [facility] [place] Work Phone: Potassium [Moles/Vol] 3.3 mmol/L 3.5-5.1 [facility] Work Phone: Protein [Mass/Vol] 8.3 g/dL 6.4-8.2 [facility] Work Phone: Sodium [Moles/Vol] 138 mmol/L 136-145 [facility] Work Phone: Triglyceride [Mass/Vol] 114 mg/dL <199 [facility] Work Phone: Comment on above: The drugs N-Acetylcy steine and Metamizole may falsely depress this assay.Serum Triglycerides Reference Interval Normal <150 mg/dL Borderline high 150 - 199 mg/dL High 200 - 499 mg/dL Very High > or = 500 mg/dL WBC (Bld) [#/Vol] 9.3 10*3/uL 4.4-11.0 [facility] Work Phone: Blood erythrocytes count (nu mber/volume)on 11-12-2021 RBC (Bld) [#/Vol] 4.69 10*6/uL 4.2-5.4 [facility] Work Phone: Blood hemoglobin measurement (mass/volume)on 11-12-2021 Hemoglobin (Bld) [Mass/Vol] 13.3 g/dL 12.0-15.0 [facility] Work Phone: Blood lymphocytes/100 leukoc yteson 11-12-2021 Lymphocytes/100 WBC (Bld) 30.7 % 19-41 [facility] Work Phone: Blood manual differential co mment interpretation (narrative result)on 11-12-2021 Manual differential comment Daniele (Bld) [Interp] SCANNED [facility] Work Phone: Blood monocytes/100 leukocyt eson 11-12-2021 Monocytes/100 WBC (Bld) 9.2 % 0-10 [facility] Work Phone: Blood platelet adequacy dete ction by light microscopyon 11-12-2021 Platelets LM Ql (Bld) ADEQUATE ADEQ [facility] Work Phone: Blood platelet mean volumeon 11-12-2021 Platelet mean volume (Bld) [Entitic vol] 11.2 fL 6.2-12.0 [facility] Work Phone: Determination of erythrocyte mean corpuscular volume (MCV)on 11-12-2021 MCV (RBC) [Entitic vol] 87.0 fL 81-99 [facility] Work Phone: Hematocrit Auto (Bld) [Volum e fraction]on 11-12-2021 Hematocrit (Bld) [Volume fraction] 40.8 % 37-47 [facility] [place] Work Phone: Laboratory - Chemistry and C hemistry - challengeon 11-12-2021 ALP [Catalytic activity/Vol] 65 U/L 45-117 [facility] [place] Work Phone: ALT [Catalytic activity/Vol] 21 U/L 13-56 [facility] Work Phone: CO2 [Moles/Vol] 31.0 mmol/L 21.0-32.0 [facility] Work Phone: Globulin (S) [Mass/Vol] 4.2 g/dL 2.2-4.2 [facility] Work Phone: Urea nitrogen/Creatinine [Mass ratio] 13.2 mg/mg 10-20 [facility] Work Phone: Laboratory - Hematology and Cell countson 11-12-2021 Erythrocyte distribution width (RBC) [Entitic vol] 42.1 fL 35.1-43.9 [facility] Work Phone: Erythrocyte distribution width (RBC) [Ratio] 13.2 % 11.6-14.6 [facility] Work Phone: Immature granulocytes/100 WBC (Bld) 0.200 % 0.0-0.9 [facility] Work Phone: Comment on above: IG% - Immature Granu locytes (promyelocytes, myelocytes and metamyelocytes) > 1% indicates that a LEFT SHIFT is Present. MCH (RBC) [Entitic mass] 28.4 pg 27.0-32.0 [facility] Work Phone: Nucleated RBC/100 WBC (Bld) [Ratio] 0 % 0-5 [facility] Work Phone: MCHC Auto (RBC) [Mass/Vol]on 11-12-2021 MCHC (RBC) [Mass/Vol] 32.6 g/dL 32-36 [facility] Work Phone: No Panel Informationon 11-12 Estimated GFR (MDRD) Amer 88 mL/min >60 [facility] Work Phone: Comment on above: GFR Calc Estimated GFR (MDRD) Non-Af Amer 73 mL/min >60 [facility] Work Phone: Comment on above: Non- GFR Calc Thyroid Stimulating Hormone (TSH) 0.88 uIU/mL 0.358-3.74 [facility] Work Phone: Platelets bldon 11-12-2021 Platelets (Bld) [#/Vol] [employer] [facility] Work Phone: Comment on above: Please note: For thi s sample, a platelet estimate is provided rather than a platelet count due to platelet clumping. Other parameters associated with this sample are not affected by platelet clumping. If a more accurate platelet count is required, a redraw of the patient will be necessary.Previous reported result: 144 [id number] by: NEGRITA on 11/13/21:0206 AMENDED REPORT 11/13/21 020 PLT previously reported as: 144 L K/mm3 Serum or plasma albumin stephane urement (mass/volume)on 11-12-2021 Albumin [Mass/Vol] 4.1 g/dL 3.2-5.0 [facility] Work Phone: Serum or plasma albumin/glob ulin mass ratioon 11-12-2021 Albumin/Globulin [Mass ratio] 1.0 {ratio} 0.9-2.4 [facility] Work Phone: Serum or plasma calcium stephane urement (mass/volume)on 11-12-2021 Calcium [Mass/Vol] 9.5 mg/dL 8.5-10.1 [facility] Work Phone: Serum or plasma cholesterol in HDL measurement (mass/volume)on 11-12-2021 Cholesterol in HDL [Mass/Vol] 65 mg/dL >40 [facility] Work Phone: Comment on above: The drugs N-Acetylcy steine and Metamizole may falsely depress this assay. Reference Range HDL <40 mg/dL Low HDL Cholesterol HDL >or= 60 mg/dL High HDL Cholesterol Serum or plasma cholesterol in VLDL measurement (mass/volume)on 11-12-2021 Cholesterol in VLDL [Mass/Vol] 23 mg/dL 5-40 [facility] Work Phone: Serum or plasma creatinine m easurement (mass/volume)on 11-12-2021 Creatinine [Mass/Vol] 0.84 mg/dL 0.55-1.02 [facility] Work Phone: Comment on above: The validity of the calculated GFR & GFRAA in patients over 70 years has not been determined. Clinical correlation is essential. Serum or plasma low density lipoprotein (LDL) cholesterol measurement (mass/volume)on 11-12-2021 Cholesterol in LDL [Mass/Vol] 134 mg/dL 0-130 [facility] Work Phone: Serum or plasma urea nitroge n measurement (mass/volume)on 11-12-2021 Urea nitrogen [Mass/Vol] 11 mg/dL 7-18 [facility] Work Phone: Thin prep Papanicolaou smear with manual screeningon 11-12-2021 Thin prep Papanicolaou smear with manual screening 22 U/L 15-37 [facility] Work Phone: Thin prep Papanicolaou smear with manual screening 8 5-15 [facility] Work Phone: CR Elbow 3+ Views Righton CR Elbow 3+ Views Right [facility]: [id number]iology ACCESSION EXAM DATE/TIME PROCEDURE ORDERING PROVIDER [id number] 12/25/2020 09:43 EDT CR Elbow 3+ Views Right TARA GRIFFITH CPT code 50206 Reason For Exam (CR Elbow 3+ Views Right) contusion right elbow Report Examination: Right elbow Clinical Indication: Pain Comparison: None Findings: AP, lateral, and oblique views of the right elbow demonstrate are provided. Well-corticated ossification is present along the tip of the olecranon process, consistent with remote/nonacute trauma. No evidence of an acute fracture or dislocation. Trace enthesopathy at the common extensor tendon origin. No evidence of a joint effusion. No significant productive or erosive arthropathy. Normal osseous mineralization. Impression: No evidence of acute fracture, dislocation, or other acute injury the right elbow. Report Dictated on Final Dictating Physician: MD TANG JASON Signed Date and Time: 12/25/2020 11:57 am Signed by: MD TANG JASON Transcribed Date and Time: 12/25/2020 11:58 Normal [facility] XR ELBOW RIGHT (MIN 3 VIEWS) Ordered By: Tara Griffith on 12-25-2020 Patient Name: RENE AQUINO Diagnostic Radiology ACCESSION EXAM DATE/TIME PROCEDURE ORDERING PROVIDER [id number] 12/25/2020 09:43 EDT CR Elbow 3+ Views Right TARA GRIFFITH CPT code 16873 Reason For Exam (CR Elbow 3+ Views Right) contusion right elbow Report Examination: Right elbow Clinical Indication: Pain Comparison: None Findings: AP, lateral, and oblique views of the right elbow demonstrate are provided. Well-corticated ossification is present along the tip of the olecranon process, consistent with remote/nonacute trauma. No evidence of an acute fracture or dislocation. Trace enthesopathy at the common extensor tendon origin. No evidence of a joint effusion. No significant productive or erosive arthropathy. Normal osseous mineralization. Impression: No evidence of acute fracture, dislocation, or other acute injury the right elbow. Report Dictated on --- Final --- Dictating Physician: MD TANG JASON Signed Date and Time: 12/25/2020 11:57 am Signed by: MD TANG JASON Transcribed Date and Time: 12/25/2020 11:[address] [facility] Work Phone: [facility] Incoming Radiology Results From [facility] - 12/25/2020 11:58 AM EDT [facility]: [id number] Diagnostic Radiology ACCESSION EXAM DATE/TIME PROCEDURE ORDERING PROVIDER [id number] 12/25/2020 09:43 EDT CR Elbow 3+ Views Right JAIRO TARA CPT code 46424 Reason For Exam (CR Elbow 3+ Views Right) contusion right elbow Report Examination: Right elbow Clinical Indication: Pain Comparison: None Findings: AP, lateral, and oblique views of the right elbow demonstrate are provided. Well-corticated ossification is present along the tip of the olecranon process, consistent with remote/nonacute trauma. No evidence of an acute fracture or dislocation. Trace enthesopathy at the common extensor tendon origin. No evidence of a joint effusion. No significant productive or erosive arthropathy. Normal osseous mineralization. Impression: No evidence of acute fracture, dislocation, or other acute injury the right elbow. Report Dictated on --- Final --- Dictating Physician: MD TANG JASON Signed Date and Time: 12/25/2020 11:57 am Signed by: MD TANG JASON Transcribed Date and Time: 12/25/2020 11:58 [facility] Work Phone: [facility] Work Phone: CT Cervical Spine WO Contras tOrdered By: Arsenio Su on 2020 [id number] Computed Tomography ACCESSION EXAM DATE/TIME PROCEDURE ORDERING PROVIDER [id number] 2020 08:[address] Spine Cervical w/o [id number] -ARSENIO SU Contrast CPT code 14021 Reason For Exam (CT Spine Cervical w/o Contrast) Fall with TTP to cervical spine. Report CT CERVICAL SPINE: CLINICAL INDICATION: Trauma, pain TECHNIQUE: Transaxial sequence through the cervical spine. Coronal and sagittal reconstructions included. COMPARISON: None FINDINGS: Cervical vertebrae, disc spaces and joints: No evidence of fracture. There is 1 mm anterolisthesis at C3-C4. There are multilevel degenerative changes including facet joint and uncovertebral joint hypertrophy and degenerative endplate changes with disc space narrowing. No suspicious osseous lesion. A bone island is present in the spinous process of C2. Spinal canal: Disc osteophyte complexes are present at multiple levels, most pronounced at C5-C6 and C6-C7, resulting in mild bony central canal narrowing. Soft tissues: There is a 0.8 cm hypodense right thyroid nodule. Other: Lung apices are unremarkable. IMPRESSION: 1. No evidence of fracture or prevertebral soft tissue swelling. 2. Multilevel cervical spondylosis. 1 mm of anterolisthesis of C3-C4. Report Dictated on --- Final --- Dictating Physician: MD LEWIS NICHOLAS Signed Date and Time: 2020 8:09 am Signed by: MD LEWIS NICHOLAS Transcribed Date and Time: 2020 8:22 [facility] Work Phone: [facility], [facility] Incoming Radiology Results From [facility] - 2020 8:22 AM EDT Patient Name: RENE MEADOWS Computed Tomography ACCESSION EXAM DATE/TIME PROCEDURE ORDERING PROVIDER [id number] 2020 08:[address] Spine Cervical w/o [id number] -ARSENIO SU Contrast CPT code 79815 Reason For Exam (CT Spine Cervical w/o Contrast) Fall with TTP to cervical spine. Report CT CERVICAL SPINE: CLINICAL INDICATION: Trauma, pain TECHNIQUE: Transaxial sequence through the cervical spine. Coronal and sagittal reconstructions included. COMPARISON: None FINDINGS: Cervical vertebrae, disc spaces and joints: No evidence of fracture. There is 1 mm anterolisthesis at C3-C4. There are multilevel degenerative changes including facet joint and uncovertebral joint hypertrophy and degenerative endplate changes with disc space narrowing. No suspicious osseous lesion. A bone island is present in the spinous process of C2. Spinal canal: Disc osteophyte complexes are present at multiple levels, most pronounced at C5-C6 and C6-C7, resulting in mild bony central canal narrowing. Soft tissues: There is a 0.8 cm hypodense right thyroid nodule. Other: Lung apices are unremarkable. IMPRESSION: 1. No evidence of fracture or prevertebral soft tissue swelling. 2. Multilevel cervical spondylosis. 1 mm of anterolisthesis of C3-C4. Report Dictated on --- Final --- Dictating Physician: MD LEWIS NICHOLAS Signed Date and Time: 2020 8:09 am Signed by: MD LEWIS NICHOLAS Transcribed Date and Time: 2020 8:22 [facility] Work Phone: [facility] Work Phone: CT Maxillofacial w/o Contras ton 2020 CT Maxillofacial w/o Contrast [id number] Computed Tomography ACCESSION EXAM DATE/TIME PROCEDURE ORDERING PROVIDER [id number] 2020 08:[address] Maxillofacial w/o [id number] -SHARLENE ARSENIO Contrast CPT code 57684 Reason For Exam (CT Maxillofacial w/o Contrast) Fall with pain across nasal bridge and R orbit. Report CT FACIAL BONES - WITH 3-D: CLINICAL INDICATION: Pain. TECHNIQUE: Transaxial sequence through the facial bones. Multiplanar reconstruction imaging was performed along with three-dimensional imaging by the radiologist on an independent workstation. COMPARISON: None. FINDINGS: Facial bones: No fracture identified. The inferior aspect of the mandible is not entirely included in the nfybm-[id number]-[id number]. Orbits: No orbital emphysema. Paranasal sinuses: There is mild mural thickening in the right maxillary sinus. Otherwise, the visualized paranasal sinuses are clear. Surrounding soft tissues:Normal IMPRESSION: No evidence of fracture. Limited evaluation of the mandible. Report Dictated on Final Dictating Physician: MD LEWIS NICHOLAS Signed Date and Time: 2020 8:15 am Signed by: MD LEWIS NICHOLAS Transcribed Date and Time: 2020 8:22 Normal [facility] CT Sinus WO Contrast Limited Ordered By: Arsenio Su on 2020 Patient Name: RENE AQUINO Computed Tomography ACCESSION EXAM DATE/TIME PROCEDURE ORDERING PROVIDER [id number] 2020 08:[address] Maxillofacial w/o [id number] -ARSENIO SU Contrast CPT code 91057 Reason For Exam (CT Maxillofacial w/o Contrast) Fall with pain across nasal bridge and R orbit. Report CT FACIAL BONES - WITH 3-D: CLINICAL INDICATION: Pain. TECHNIQUE: Transaxial sequence through the facial bones. Multiplanar reconstruction imaging was performed along with three-dimensional imaging by the radiologist on an independent workstation. COMPARISON: None. FINDINGS: Facial bones: No fracture identified. The inferior aspect of the mandible is not entirely included in the ekwhe-th-ruoo. Orbits: No orbital emphysema. Paranasal sinuses: There is mild mural thickening in the right maxillary sinus. Otherwise, the visualized paranasal sinuses are clear. Surrounding soft tissues:Normal IMPRESSION: No evidence of fracture. Limited evaluation of the mandible. Report Dictated on --- Final --- Dictating Physician: MD LEWIS NICHOLAS Signed Date and Time: 2020 8:15 am Signed by: MD LEWIS NICHOLAS Transcribed Date and Time: 2020 8:22 [facility] Work Phone: Andrea, [facility] Incoming Radiology Results From [facility] - 2020 8:22 AM EDT [id number] ACCESSION EXAM DATE/TIME PROCEDURE ORDERING PROVIDER [id number] 2020 08:[address] Maxillofacial w/o [id number] -ARSENIO SU Contrast CPT code 63440 Reason For Exam (CT Maxillofacial w/o Contrast) Fall with pain across nasal bridge and R orbit. Report CT FACIAL BONES - WITH 3-D: CLINICAL INDICATION: Pain. TECHNIQUE: Transaxial sequence through the facial bones. Multiplanar reconstruction imaging was performed along with three-dimensional imaging by the radiologist on an independent workstation. COMPARISON: None. FINDINGS: Facial bones: No fracture identified. The inferior aspect of the mandible is not entirely included in the kdkuq-dv-njdq. Orbits: No orbital emphysema. Paranasal sinuses: There is mild mural thickening in the right maxillary sinus. Otherwise, the visualized paranasal sinuses are clear. Surrounding soft tissues:Normal IMPRESSION: No evidence of fracture. Limited evaluation of the mandible. Report Dictated on --- Final --- Dictating Physician: MD LEWIS NICHOLAS Signed Date and Time: 2020 8:15 am Signed by: MD LEWIS NICHOLAS Transcribed Date and Time: 2020 8:[address] [facility] Work Phone: [facility] Work Phone: CT Spine Cervical w/o Contrshelli lawler 2020 CT Spine Cervical w/o Contrast [facility]: [id number] Tomography ACCESSION EXAM DATE/TIME PROCEDURE ORDERING PROVIDER [id number] 2020 08:[address] Spine Cervical w/o [id number] -ARSENIO SU Contrast CPT code 25159 Reason For Exam (CT Spine Cervical w/o Contrast) Fall with TTP to cervical spine. Report CT CERVICAL SPINE: CLINICAL INDICATION: Trauma, pain TECHNIQUE: Transaxial sequence through the cervical spine. Coronal and sagittal reconstructions included. COMPARISON: None FINDINGS: Cervical vertebrae, disc spaces and joints: No evidence of fracture. There is 1 mm anterolisthesis at C3-C4. There are multilevel degenerative changes including facet joint and uncovertebral joint hypertrophy and degenerative endplate changes with disc space narrowing. No suspicious osseous lesion. A bone island is present in the spinous process of C2. Spinal canal: Disc osteophyte complexes are present at multiple levels, most pronounced at C5-C6 and C6-C7, resulting in mild bony central canal narrowing. Soft tissues: There is a 0.8 cm hypodense right thyroid nodule. Other: Lung apices are unremarkable. IMPRESSION: 1. No evidence of fracture or prevertebral soft tissue swelling. 2. Multilevel cervical spondylosis. 1 mm of anterolisthesis of C3-C4. Report Dictated on Final Dictating Physician: MD LEWIS NICHOLAS Signed Date and Time: 2020 8:09 am Signed by: MD LEWIS NICHOLAS Transcribed Date and Time: 2020 8:22 Normal [facility] JUSTYNA CHANO DIGITAL SCREEN BILA TERALon 04-26-2019 Patient Name: RENE AQUINO ---Mammography--- Exam Date/Time 04/26/2019 11:23:57 EST Exam MG Breast Tomosynthesis BI [facility] Ordering Physician ARTHUR LENNON DORA L Accession Number [id number] CPT4 Codes 80822 (MG Breast Tomosynthesis Scr Bl), 90483 (MG MAMMO 2D SCREENING) Reason For Exam screening Report REASON FOR EXAM: screening, asymptomatic. PROCEDURE: MG BREAST TOMOSYNTHESIS BL SCR: APRIL 26, 2019 - 2D/3D Procedure 3D Bilateral CC and MLO view(s) were taken. 2D Bilateral CC and MLO view(s) were taken. Prior study comparison: February 05, 2016, bilateral screening mammogram performed at [facility]. January 09, 2015, bilateral screening mammogram performed at [facility]. TISSUE DENSITY: There are scattered fibroglandular densities. . FINDINGS: No suspicious masses, architectural distortions or suspiciously clustered microcalcifications are identified. There is no evidence of skin thickening or nipple retraction. There are no significant changes when compared with prior studies. Markings on images: BB's = Nipples; skin lesions Open kaw = Palpable Line = Scar 2D digital mammography and tomosynthesis imaging were performed and reviewed with CAD. ASSESSMENT: Category 1 Negative RECOMMENDATION: Routine screening mammogram of both breasts in 1 year. . Report Dictated on Cancer Risk Assessment: This risk assessment is based on patient provided information collected in a risk survey taken at the time of this examination. Lifetime breast cancer risk: 7.3% - If greater than or equal to 20%, consider annual mammogram and annual screening Breast MRI or follow up in high risk clinic. Is the patient at elevated risk based on the HBOC criteria? No (Hereditary Breast and Ovarian Cancer) - If yes, consider genetic counseling and testing with high risk follow up. HNPCC mutation risk (Mendenhall Syndrome): 1% - if greater than or equal to 5%, consider genetic counseling, testing and screening colonoscopy. --- Final --- Signed Date and Time: 04/26/2019 1:46 pm Signed by: MD ALLEN, [facility] Incoming Radiology Results From [facility] - 04/26/2019 1:55 PM EST Patient Name: RENE MEADOWS ---Mammography--- Exam Date/Time 04/26/2019 11:23:57 EST Exam MG Breast Tomosynthesis BI Scr Ordering Physician ARTHUR LENNON DORA L Accession Number [id number] CPT4 Codes 17489 (MG Breast Tomosynthesis Scr Bl), 53420 (MG MAMMO 2D SCREENING) Reason For Exam screening Report REASON FOR EXAM: screening, asymptomatic. PROCEDURE: MG BREAST TOMOSYNTHESIS BL SCR: APRIL 26, 2019 - 2D/3D Procedure 3D Bilateral CC and MLO view(s) were taken. 2D Bilateral CC and MLO view(s) were taken. Prior study comparison: February 05, 2016, bilateral screening mammogram performed at [facility]. January 09, 2015, bilateral screening mammogram performed at [facility]. TISSUE DENSITY: There are scattered fibroglandular densities. . FINDINGS: No suspicious masses, architectural distortions or suspiciously clustered microcalcifications are identified. There is no evidence of skin thickening or nipple retraction. There are no significant changes when compared with prior studies. Markings on images: BB's = Nipples; skin lesions Open kaw = Palpable Line = Scar 2D digital mammography and tomosynthesis imaging were performed and reviewed with CAD. ASSESSMENT: Category 1 Negative RECOMMENDATION: Routine screening mammogram of both breasts in 1 year. . Report Dictated on Cancer Risk Assessment: This risk assessment is based on patient provided information collected in a risk survey taken at the time of this examination. Lifetime breast cancer risk: 7.3% - If greater than or equal to 20%, consider annual mammogram and annual screening Breast MRI or follow up in high risk clinic. Is the patient at elevated risk based on the HBOC criteria? No (Hereditary Breast and Ovarian Cancer) - If yes, consider genetic counseling and testing with high risk follow up. HNPCC mutation risk (Mendenhall Syndrome): 1% - if greater than or equal to 5%, consider genetic counseling, testing and screening colonoscopy. 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 MEDCO-14 submission (select one of the options below.) I have never completed a MEDCO-14. Proceed to section 2. 2. 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 3A. Work Status/Injured worker's capabilities. Updates: Does the injured worker have any physical or health restrictions related to allowed conditions in the claim? Yes The restrictions are temporary. Proceed to section 3B 3B. Can the injured worker return to full duties of his/her job held on the date of injury (former position of employment)? Yes. The injured worker is released to work as of the date of this exam. Proceed to section 8 The injured worker could not do the job held on the date of the injury for this period of restricted duty. Date: Proceed to section 3C 3C. Please indicate which of the activities listed below the injured worker can perform (even if the response to 3B is No.) The injured worker is not released to the former position of employment but may return to available and appropriate work with restrictions, the possible return to work date: If the injured worker is taking prescribed medications for the allowed conditions in this claim, can the injured worker safely: Please indicate the following: N=Never, O=Occasionally, F=Frequently, C=Continuously In an eight-hour workday, how many total hours can the injured worker: Does the injured worker have any functional restrictions based only on allowed psychological conditions? Note: If Yes is indicated please reference the MEDCO-16 as needed. Additionally, please provide any additional information addressing the injured worker's capabilities and/or job accommodations which may not be addressed above. Further evaluation by insurance law specialist is requested. 4A. Disability information (If 3B above is No or dates updated - all 4A brumfield, including site/location if applicable must be completed) Complete the chart below and furnish the narrative description of the diagnosis(es), site/location, if applicable, and the ICD code(s) for the condition(s) being treated due to the work-related injury/disease. Please indicate if the condition is preventing the injured worker from returning to job duties he/she held on the date of the injury. 5. Clinical findings: You can reference offices notes in lieu of writing clinical findings below. Provide your clinical and objective findings supporting your medical opinion outlined on this form. List barriers to return to work and reason, for the injured worker's delay in recovery. 6. Maximum medical improvement (MMI): MMI is a treatment plateau (static or well-stabilized) at which no fundamental functional or physiological change can be expected within reasonable medical probability, in spite of continuing medical or rehabilitative procedures. Has the work-related injury(s) or occupational disease reached MMI based on the definition above? No, the proposed treatment plan, including estimated duration of each treatment. *Note: An injured worker may need supportive treatment to maintain his or her level of function after reaching MMI. Thus, periodic medical treatment may still be requested and provided. 7. Vocational rehabilitation: Vocational rehabilitation is an individualized and voluntary program for an eligible injured worker who needs assistance in safely returning to work or in retaining employment.This program can be tailored around an injured worker's restrictions and may provide job seeking skills or necessary retraining. Is the injured worker a candidate for vocational rehabilitation services focusing on return to work? If no, please explain why and provide your recommendations to help the injured worker return to employment. 8. Treating physician signature - mandatory I certify the information on this form is correct to the best of my knowledge. I am aware that any person who knowingly makes a false statement, misrepresentation, concealment of fact or any other act of fraud to obtain payment as provided by [facility], or who knowingly accepts payment to which that person is not entitled, is subject to felony criminal prosecution and may be punished, under appropriate criminal provisions. by a fine or imprisonment or both. Treating physician's name (please print legibly): Vera Espinoza DO. [facility] provider (Chanel) number: Complete Address, Telephone, Fax number and Date: [facility] [address] [place] [address] [address] [place] [address] (phone) [phone] (fax) [facility] provider number [phone] Treating physician's signature: Vera sEpinoza DO Signatures Electronically signed by : Vera Espinoza DO; Nov 23 2018 11:50AM EST (Author) Normal [facility] Office Visit [facility] 9 Office Visit [facility] *Chief Complaint Date of Injury: . History of Present Illness 63-year-old qdltj-mmge-xmdmjzpt female presents for evaluation of left wrist pain and tingling in her fingers. Patient states that she does repetitive movement of both of her wrists. She is concerned about carpal tunnel. She states over the last 2 months the pain has gotten progressive as well as the tingling and sometimes numbness in her fingers. She has multiple Velcro wrist splints that she wears. She's tried aaww-dcf-otbesif anti-inflammatories. She did have a diagnosis of carpal tunnel in her right upper extremity and had surgery about 15 years ago. She does not recall any specific injury but states that the pain is worsened over the last 2 months. Has caused pt to miss work. ROS: 7 body systems reviewed and otherwise negative unless dictated in the history of present illness. Review of Systems Chart Histories Review: Past Medical History reviewed. Past Surgical History reviewed. *Current Meds Medication NameInstruction L-Thyroxine Sodium 88 MCG TABS Omeprazole 20 MG Oral Capsule Delayed Release Simvastatin TABS *Allergies No Known Drug Allergies *Vitals Vital Signs Recorded: 23Nov2018 11:06AM Temperature: 98 F Heart Rate: 88 Respiration: 16 Systolic: 136 Diastolic: 85 O2 Saturation: 95 Pain Scale: 8 Physical Exam Gen: Alert and oriented, not acutely ill or toxic appearing HEENT: Head is NC and AT. No facial asymmetry. Voice clear. Heart: regular rate and rhythm without murmur Lungs: clear to auscultation and respirations are unlabored Skin: warm and dry overall MS: Full range of motion at the shoulder and elbow. No restriction to flexion or extension at the elbow. Able to supinate and pronate. Full range of motion at the wrist. Distal sensation grossly intact. Positive Tinel's and Phalens left upper extremity. Cap refill < 2 sec. Neuro: ambulatory without assist. Mentation clear. Answering questions quickly and appropriately. *Diagnosis/Problems Carpal tunnel syndrome of left wrist (354.0) (G56.02) *Patient Discussion/Summary To orthopedics for evaluation and treatment. Please continue to wear the velcro wrist splints. Ibuprofen for discomfort. MEDCO-14 MEDCO-14 Physician's Report of Work Ability [id number] Injured Worker: RENE MEADOWS Date of injury: 09/22/2018 Date of last appointment/examination : 11/23/2018 Date of this appointment/examination : 11/23/2018 1. MEDCO-14 submission (select one of the options below.) I have never completed a MEDCO-14. Proceed to section 2. 2. 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 3A. Work Status/Injured worker's capabilities. Updates: Does the injured worker have any physical or health restrictions related to allowed conditions in the claim? Yes The restrictions are temporary. Proceed to section 3B 3B. Can the injured worker return to full duties of his/her job held on the date of injury (former position of employment)? Yes. The injured worker is released to work as of the date of this exam. Proceed to section 8 The injured worker could not do the job held on the date of the injury for this period of restricted duty. Date: Proceed to section 3C 3C. Please indicate which of the activities listed below the injured worker can perform (even if the response to 3B is No.) The injured worker is not released to the former position of employment but may return to available and appropriate work with restrictions, the possible return to work date: If the injured worker is taking prescribed medications for the allowed conditions in this claim, can the injured worker safely: Please indicate the following: N=Never, O=Occasionally, F=Frequently, C=Continuously In an eight-hour workday, how many total hours can the injured worker: Does the injured worker have any functional restrictions based only on allowed psychological conditions? Note: If Yes is indicated please reference the MEDCO-16 as needed. Additionally, please provide any additional information addressing the injured worker's capabilities and/or job accommodations which may not be addressed above. Further evaluation by insurance law specialist is requested. 4A. Disability information (If 3B above is No or dates updated - all 4A brumfield, including site/location if applicable must be completed) Complete the chart below and furnish the narrative description of the diagnosis(es), site/location, if applicable, and the ICD code(s) for the condition(s) being treated due to the work-related injury/disease. Please indicate if the condition is preventing the injured worker from returning to job duties he/she held on the date of the injury. 5. Clinical findings: You can reference offices notes in lieu of writing clinical findings below. Provide your clinical and objective findings supporting your medical opinion outlined on this form. List barriers to return to work and reason, for the injured worker's delay in recovery. 6. Maximum medical improvement (MMI): MMI is a treatment plateau (static or well-stabilized) at which no fundamental functional or physiological change can be expected within reasonable medical probability, in spite of continuing medical or rehabilitative procedures. Has the work-related injury(s) or occupational disease reached MMI based on the definition above? No, the proposed treatment plan, including estimated duration of each treatment. *Note: An injured worker may need supportive treatment to maintain his or her level of function after reaching MMI. Thus, periodic medical treatment may still be requested and provided. 7. Vocational rehabilitation: Vocational rehabilitation is an individualized and voluntary program for an eligible injured worker who needs assistance in safely returning to work or in retaining employment.This program can be tailored around an injured worker's restrictions and may provide job seeking skills or necessary retraining. Is the injured worker a candidate for vocational rehabilitation services focusing on return to work? If no, please explain why and provide your recommendations to help the injured worker return to employment. 8. Treating physician signature - mandatory I certify the information on this form is correct to the best of my knowledge. I am aware that any person who knowingly makes a false statement, misrepresentation, concealment of fact or any other act of fraud to obtain payment as provided by [facility], or who knowingly accepts payment to which that person is not entitled, is subject to felony criminal prosecution and may be punished, under appropriate criminal provisions. by a fine or imprisonment or both. Treating physician's name (please print legibly): Vera Espinoza DO. [facility] provider (Chanel) number: Complete Address, Telephone, Fax number and Date: [facility] [address] [place] [address] (phone) [phone] (fax) [facility] provider number [phone] Treating physician's signature: Vera Espinoza DO Signatures Electronically signed by : Vera Espinoza DO; Nov 23 2018 11:50AM EST (Author) Normal [facility] KNEE COMP 4 OR MORE VIEWS UN ILATERALon 09-25-2017 Protein Performed at [facility] APPROVED BY: ARIAS DANIELS MD EXAMINATION: KNEE COMP 4 OR MORE VIEWS UNILATERAL CLINICAL HISTORY: Technique: KNEE COMP 4 OR MORE VIEWS UNILATERAL -- with views on images Comparison: None RESULT: No acute fracture or osseous lesions are identified. There is mild medial compartment joint space narrowing. Small tricompartment osteophytes are seen. There is no joint effusion. IMPRESSION: Mild DJD Normal [facility] Vital Signs Date Time Vital Sign Value Performing Clinician Faci lity 11-24-2022 17:49-0400 Body height 175.9 cm [facility] 11-24-2022 17:49-0400 Body mass index (BMI) [Ratio] 31.5 kg/m2 [facility] 11-24-2022 17:49-0400 Body temperature 97.9 [degF] [facility] 11-24-2022 17:49-0400 Body weight 97.52 kg [facility] 11-24-2022 17:49-0400 Diastolic blood pressure 70 mm[Hg] [facility] 11-24-2022 17:49-0400 Heart rate 92 /min [facility] 11-24-2022 17:49-0400 Respiratory rate 18 /min [facility] 11-24-2022 17:49-0400 SaO2% (BldA) [Mass fraction] 95 % [facility] 11-24-2022 17:49-0400 Systolic blood pressure 130 mm[Hg] [facility] 03-18-2022 07:43-0500 Body height 180.3 cm Abhinav Lennon Work Phone: [facility] 03-18-2022 07:43-0500 Body mass index (BMI) [Ratio] 27.2 kg/m2 Abhinav Lennon Work Phone: [facility] 03-18-2022 07:43-0500 Body weight 88.45 kg Abhinav Lennon Work Phone: [facility] 11-12-2021 15:02-0400 Body height 175.9 cm [facility] Work Phone: 11-12-2021 15:02-0400 Body mass index (BMI) [Ratio] 29 kg/m2 [facility] Work Phone: 11-12-2021 15:02-0400 Body temperature 97.7 [degF] [facility] Work Phone: 11-12-2021 15:02-0400 Body weight 89.81 kg [facility] Work Phone: 11-12-2021 15:02-0400 Diastolic blood pressure 70 mm[Hg] [facility] Work Phone: 11-12-2021 15:02-0400 Heart rate 89 /min [facility] Work Phone: 11-12-2021 15:02-0400 Respiratory rate 18 /min [facility] Work Phone: 11-12-2021 15:02-0400 SaO2% (BldA) [Mass fraction] 96 % [facility] Work Phone: 11-12-2021 15:02-0400 Systolic blood pressure 140 mm[Hg] [facility] Work Phone: 2020 08:42-0400 Diastolic blood pressure 77 mm[Hg] Arsenio Su MD Work Phone: [facility] Work Phone: 2020 08:42-0400 Heart rate 80 /min Arsenio Su MD Work Phone: [facility] Work Phone: 2020 08:42-0400 Respiratory rate 16 /min Arsenio Su MD Work Phone: [facility] Work Phone: 2020 08:42-0400 SaO2% (BldA) [Mass fraction] 95 % Arsenio Su MD Work Phone: [facility] Work Phone: 2020 08:42-0400 Systolic blood pressure 121 mm[Hg] Arsenio Su MD Work Phone: [facility] Work Phone: 2020 07:20-0400 Body height 180.3 cm Arsenio Su MD Work Phone: [facility] Work Phone: 2020 07:20-0400 Body mass index (BMI) [Ratio] 27.2 kg/m2 Arsenio Su MD Work Phone: [facility] Work Phone: 2020 07:20-0400 Body temperature 99.3 [degF] Arsenio Su MD Work Phone: [facility] Work Phone: 2020 07:20-0400 Body weight 88.45 kg Arsenio Su MD Work Phone: [facility] Work Phone: Encounters Encounter Date Encounter Type Care Provider Facility Start: 11-24-2023 End: 11-24-2023 ambulatory [facility] Facility:[facility] Start: 11-24-2022 End: 11-24-2022 ambulatory [facility] Work Phone: Start: 11-24-2022 End: 11-24-2022 Patient encounter procedure [facility], Specimen Work Phone: Start: 03-18-2022 End: 03-19-2022 ambulatory ABHINAV LENNON [facility] Start: 03-18-2022 End: 03-18-2022 Subsequent hospital visit by physician Abhinav Lennon Work Phone: [facility] Comment on above: Encounter for screen ing mammogram for malignant neoplasm of breast Start: 11-13-2021 End: 11-13-2021 ambulatory [facility] Work Phone: Start: 11-13-2021 End: 11-13-2021 Patient encounter procedure [facility], Specimen Start: 12-25-2020 End: 12-25-2020 Subsequent hospital visit by physician Tara Griffith MD Work Phone: [facility] Start: 2020 End: 2020 Emergency department patient visit Arsenio Su MD Work Phone: [facility] Comment on above: Closed head injury, initial encounter (Primary Dx); Neck pain; Acute pain of both knees; Acute pain of left shoulder; Fall on same level from slipping, tripping or stumbling, initial encounter Start: 04-26-2019 End: 04-26-2019 Subsequent hospital visit by physician Abhinav Lennon Work Phone: [facility] Comment on above: Arrived Start: 10-29-2018 Patient encounter status [facility] Procedures Date Procedure Procedure Detail Performing Clinician Start: 03-18-2022 End: 03-18-2022 Screening digital breast tomosynthesis ana Lennon Work Phone: Start: 12-25-2020 Radex elbow complete minimum 3 views Tara Griffith MD Work Phone: Start: 2020 Ct cervical spine w/ o contrast material Arsenio Su MD Work Phone: Start: 2020 Ct maxillofacial w/o contrast material Arsenio Su MD Work Phone: Start: 04-26-2019 Screening digital br east tomosynthesis ana Lennon Work Phone: Plan of Treatment Date Care Activity Detail Author Start: 03-18-2023 Screening for malign ant neoplasm of breast Mammogram [facility] T[facility] Start: 04-26-2021 Screening for malign ant neoplasm of breast Breast cancer screen [facility] Work Phone: Start: 11-04-2020 Influenza vaccination Flu vaccine (# 1) [facility] Work Phone: Start: 09-23-2020 Pneumococcal 65+ yea rs Vaccine (1 of 1 - PPSV23) Pneumococcal 65+ years Vaccine (1 of 1 - PPSV23) [facility] Work Phone: Start: 09-23-2020 Pneumococcal Vaccine : 65+ Years (1 - PCV) Pneumococcal Vaccine: 65+ Years (1 - PCV) [facility] Start: 09-17-2020 COVID-19 Vaccine (3 - Booster for Pfizer series) COVID-19 Vaccine (3 - Booster for Pfizer series) [facility] Start: 11-04-2018 Influenza vaccination Flu vaccine (# 1) [place], [place] Start: 02-04-2018 Breast cancer screen Breast cancer s creen [place], [place] Start: 03-19-2016 Zoster Vaccines (2 of 3) Zoster Vacc chrissy (2 of 3) [facility] Start: 09-23-2010 Screening for osteoporosis DEXA (modify frequency per FRAX score) [facility] Work Phone: Start: 09-23-2005 Colon cancer screen colonoscopy Colon cancer screen colonoscopy [place], [place] Start: 09-23-2005 Shingles Vaccine (1 of 2) Shingles V accine (1 of 2) [place] Start: 09-23-2000 Screening for malign ant neoplasm of colon Colon cancer screen colonoscopy [facility] Work Phone: Start: 1995 Diabetes screen Diabetes screen [facility] Work Phone: Start: 1995 Lipid panel Lipid screen [facility] Work Phone: Start: 1995 Lipid screen Lipid screen [place], [place] Start: 09-23-1985 Screening for malign ant neoplasm of cervix [facility] Work Phone: Start: 09-23-1976 Cervical cancer screen Cervical canc er screen [place] Start: 09-23-1976 Screening for malign ant neoplasm of cervix [facility] Work Phone: Start: 09-23-1974 DTaP/Tdap/Td vaccine (1 - Tdap) DTaP/Tdap/Td vaccine (1 - Tdap) [facility] Work Phone: Start: 09-23-1974 DTaP/Tdap/Td Vaccine s (1 - Tdap) DTaP/Tdap/Td Vaccines (1 - Tdap) [facility] Start: 09-23-1973 Diabetes mellitus screening Diabetes Screening [facility] Start: 09-23-1973 Hepatitis C screening Hepatitis C Sc reening [facility] Start: 09-23-1970 HIV screen HIV screen [place], [place] Start: 09-23-1970 HIV screening HIV screen [facility] Work Phone: Start: 1967 COVID-19 Vaccine (1) COVID-19 Vaccin e (1) [facility] Work Phone: Start: 09-23-1966 DTaP/Tdap/Td vaccine (1 - Tdap) DTaP/Tdap/Td vaccine (1 - Tdap) [place] Start: 09-23-1965 Lipid panel Lipid screen [facility] Work Phone: Start: 1955 Creatinine measurement Creatinine mo nitoring [facility] Work Phone: Start: 1955 Hepatitis B Vaccines (1 of 3 - 3-dose series) Hepatitis B Vaccines (1 of 3 - 3-dose series) [facility] Start: 1955 Hepatitis C screen Hepatitis C scree n [place], [place] Start: 1955 Hepatitis C screening Hepatitis C sc reen [facility] Work Phone: Start: 1955 Potassium monitoring Potassium monit oring [facility] Work Phone: Start: 1955 Screening for malign ant neoplasm of colon [facility] Start: 1955 Screening for osteoporosis Bone Density Scan [facility] Payers Date Payer Category Payer Medicare [id number] 2023 Self-pay [id number] 2023 Unknown [id number] 2021 Unknown SONYA FRENCH CROS S SONYA FRENCH CROSS [id number] 2021-Present [address] [place] [address] Commercial [id number] 2019 Unknown [id number] Unknown [id number] Social History Date Type Detail Facility Tobacco smoking stat [facility] Unknown if ever smoked [place], [place] Start: 1955 Sex Assigned At Not on file M [place], [place] Start: 2020 Tobacco smoking stat [facility] Never smoker [facility] Trend Start: 2020 End: 03-18-2022 Alcohol intake Ex-drinker (finding) [facility] Mr. Number Phone: Start: 03-08-2022 End: 03-18-2022 Exposure to SARS-CoV-2 (event) Not sure [facility] Start: 1955 Sex Assigned At Female [facility] Evaluation note Note Date & Type Note Facility Evaluation note Diagnosis Closed head injury, initial encounter- Primary Neck pain Cervicalgia Acute pain of both knees Acute pain of left shoulder Fall on same level from slipping, tripping or stumbling, initial encounter documented in this encounter [facility] Mr. Number Phone: Evaluation note Note Date & Type Note Facility Evaluation note Diagnosis Onset Date Wellness examination acute [facility] Work Phone: Evaluation note Note Date & Type Note Facility Evaluation note Diagnosis Onset Date Hyperlipidemia acute Hypokalemia acute Hypothyroidism acute Osteoarthritis (arthritis du e to wear and tear of joints) acute Hypertension chronic [facility] Work Phone: Evaluation note Note Date & Type Note Facility Evaluation note Diagnosis Encounter for screening mammogram for malignant neoplasm of breast documented in this encounter [facility] Discharge instructions InstructionsAttachments Note Date & Type Note Facility Hospital Discharge instructions Arsenio Su MD - 2020 You may take Tylenol and/or Motrin as needed for pain. Apply ice packs to your nose and over your eye to help with pain and swelling. The following attachments cannot be sent through Care Everywhere.Knee Pain or Injury (Senegalese)Head Injury: Closed: General Info (Senegalese)Muscle Strain ([place]egalese)documented in this encounter 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 ACP-Advance Directive ACP-Power of Menswear Salesperson Chief Complaint and Reason for Visit Chief Complaint Annual wellness exam PE medrefills & labs Reason for Visit Wellness examination Chief Complaint medication refills Reason for Visit Hyperlipidemia Hypokalemia Hypothyroidism Osteoarthritis (arthritis due to wear and tear of joints) Hypertension Additional Source Comments INFORMATION SOURCE (unrecogn ized section and content) DATE CREATED AUTHOR 09/26/2017 [employer] [facility] DATE CREATED AUTHOR AUTHOR'S ORGANIZ ATION 11/23/2018 [employer] DATE CREATED AUTHOR AUTHOR'S ORGANIZ ATION 02/20/2021 [facility] DATE CREATED AUTHOR AUTHOR'S ORGANIZ ATION 03/19/2022 [facility] DATE CREATED AUTHOR AUTHOR'S ORGANIZ ATION 12/20/2023 [facility] Reason for Visit (unrecogniz ed section and content) Reason Comments Fall Head Injury Knee Pain Neck Pain Arm Pain Shoulder Pain Goals (unrecognized section and content) Goals may be documented in a n alternate sectionGoals may be documented in an alternate section Care Teams (unrecognized sec tion and content) Team Status: Active Member Role Status Dates Dr. Almas Martin MD Family Provider Active Dr. Almas Martin MD Primary Care Provider Active Team Status: Inactive Member Role Status Dates Dr. Almas Martin MD Primary Care Provider, Referring Provider Active Abhinav Lennon NP, SALES & SERVICE ASSOCIATE-C Attending Provider Active Team Status: Inactive Member Role Status Dates Dr. Almas Martin MD Primary Care Provider Active Abhinav Lennon NP, SALES & SERVICE ASSOCIATE-C Attending Provider Active Ticket Writer Relationship Specialty Start Date End Date Lennon, Abhinav [address] [place] [address] PCP - General 01/09/15 FOR RECORDS PERTAINING TO PATIENTS WHO ARE OR HAVE BEEN ENROLLED IN A CHEMICAL DEPENDENCY/SUBSTANCEABUSE PROGRAM, SOME INFORMATION MAY BE OMITTED. This clinical summary was aggregated from multiple sources. Caution should be exercised in using it in the provision of clinical care. This summary normalizes information from multiple sources, and as a consequence, information in this document may materially change the coding, format and clinical context of patient data. In addition, data may be omitted in some cases. CLINICAL DECISIONS SHOULD BE BASED ON THE PRIMARY CLINICAL RECORDS. [facility] [employer] [facility] provides no warranty or guarantee of the accuracy or completeness of information in this document.
[2024-11-23 00:03] LABS: AST(SGOT) 25 U/L (<=31); Alanine Aminotransfer ALT/SGPT 13 U/L (<=34); Albumin, Serum 4.4 g/dL (3.4-4.8); Alkaline Phosphatase 61 U/L (35-104); Anion Gap 15 (5-15); BUN 14 mg/dL (4-19); BUN/Creat Ratio 12.8 RATIO (10-20); Calcium,Total 9.5 mg/dL (7.6-11.0); Carbon Dioxide 25.5 mmol/L (21.0-32.0); Chloride 93 mmol/L (98-108); Cholesterol 206 mg/dL (<=200); Globulin 3.5 g/dL (2.2-4.2); Glucose 227 mg/dL (70-99); Low Density Lipoprotein Calc. 120 mg/dL; Potassium 3.5 mmol/L (3.3-5.1); Triglycerides 163 mg/dL; Very Low Density Lipoprotein 33 mg/dL (5-40); cholesterol:hdl ratio screen 3.84
[2024-11-23 00:05] LABS: Hematocrit 39.3 % (37-47); Hemoglobin 13.0 g/dL (12.0-15.0); Immature Granulocytes Count 0.020 X10^3/uL (0.0-0.0); Mean Corp Hgb Conc 33.1 g/dL (32-36); Mean Corpuscular Volume 87.7 fL (81-99); Mean Platelet Vol. 11.9 fl (6.2-12.0); NRBC Flagged by Analyzer 0 % (0-5); Platelet Count 154 K/mm3 (150-450); RBC Distribution Width CV 12.3 % (11.6-14.6); RBC Distribution Width SD 39.6 fl (35.1-43.9); Red Blood Count 4.48 M/mm3 (4.2-5.4); White Blood Count 9.0 K/mm3 (4.4-11.0)
== END | disposition home or self-care (01) ==
PROVIDERS: PCP Family Medicine; Referring Provider Nurse Practitioner; Visit Provider Nurse Practitioner
DX: E87.6 Hypokalemia (principal); I10 Essential (primary) hypertension; E03.9 Hypothyroidism, unspecified; E78.2 Mixed hyperlipidemia
CPT/HCPCS: 80053; 80061; 84443; 85025